=== PATIENT | female | born 1995 | race Caucasian/White ===

== ENCOUNTER 2017-07-12 08:26 | Emergency (ER) | payer BC ==
[2017-07-12 08:35] VITALS: RESP 16; TEMP 97.9
[2017-07-12] MEDS ORDERED: ONDANSETRON 4 MG/2 ML VIAL ONE (08:39)
[2017-07-12] MEDS ORDERED: ONDANSETRON 4 MG/2 ML VIAL IVP ONE ×2 (08:46→09:37)
--- NOTE | 2017-07-12 08:52 | EDPHY ---
H & P Stated Complaint: Pt reports anxiety and nausea/vomiting x 2 days. Time Seen by Provider: 07/12/17 08:38 HPI/ROS: CHIEF COMPLAINT: Her nausea vomiting HISTORY OF PRESENT ILLNESS: The patient is an 20-year-old female who comes to the emergency department complaining of nausea vomiting for 2 days. She states that she has vomited twice today. No fever. No abdominal pain. No diarrhea. No rash. She denies risk of . No urinary symptoms. No vaginal bleeding or discharge. She does have a history of depression, anxiety and attention deficit hyperactivity disorder. She also reports that about a year ago she got C diff from antibiotics prescribed for urinary tract infection and eventually was diagnosed with "gastroparesis" which has since resolved. She is not diabetic. REVIEW OF SYSTEMS: Constitutional: denies: chills, fever, recent illness, recent injury EENTM: denies: blurred vision, double vision, nose congestion Respiratory: denies: cough, shortness of breath Cardiac: denies: chest pain, irregular heart rate, lightheadedness, palpitations Gastrointestinal/Abdominal: See HPI Genitourinary: denies: dysuria, frequency, hematuria, pain Musculoskeletal: denies: joint pain, muscle pain Skin: denies: lesions, rash, jaundice, bruising Neurological: denies: headache, numbness, paresthesia, tingling, dizziness, weakness Hematologic/Lymphatic: denies: blood clots, easy bleeding, easy bruising Immunologic/allergic: denies: HIV/AIDS, transplant EXAM: GENERAL: Well-appearing, well-nourished and in no acute distress. HEAD: Atraumatic, normocephalic. EYES: Pupils equal round and reactive to light, extraocular movements intact, sclera anicteric, conjunctiva are normal. ENT: TMs normal, nares patent, oropharynx clear without exudates. Moist mucous membranes. NECK: Normal range of motion, supple without lymphadenopathy or JVD. LUNGS: Breath sounds clear to auscultation bilaterally and equal. No wheezes rales or rhonchi. HEART: Regular rate and rhythm without murmurs, rubs or gallops. ABDOMEN: Soft, nontender, normoactive bowel sounds. No guarding, no rebound. No masses appreciated. BACK: No CVA tenderness, no spinal tenderness, step-offs or deformities EXTREMITIES: Normal range of motion, no pitting or edema. No clubbing or cyanosis. NEUROLOGICAL: Cranial nerves II through XII grossly intact. Normal speech, normal gait. 5/5 strength, normal movement in all extremities, normal sensation PSYCH: Normal mood, normal affect. SKIN: Warm, dry, normal turgor, no visible rashes or lesions. Source: Patient Exam Limitations: No limitations - Personal History LMP (Females 10-55): Extended Cycle BCP/Inj Current Tetanus Diphtheria and Acellular Pertussis (TDAP): Yes Tetanus Vaccine Date: within 10 years - Medical/Surgical History Hx Asthma: No Hx Chronic Respiratory Disease: No Hx Diabetes: No Hx Cardiac Disease: No Hx Renal Disease: No Hx Cirrhosis: No Hx Alcoholism: No Hx HIV/AIDS: No Hx Splenectomy or Spleen Trauma: No Other PMH: Hypothyroidism, anxiety, gastroparesis, ADHD, depression, ear tubes - Family History Significant Family History: No pertinent family hx - Social History Smoking Status: Current every day smoker Alcohol Use: Sober Drug Use: None Constitutional: Initial Vital Signs Temperature (C) 36.6 C 07/12/17 08:31 Heart Rate 78 07/12/17 08:31 Respiratory Rate 16 07/12/17 08:31 Blood Pressure 117/72 07/12/17 08:31 O2 Sat (%) 95 07/12/17 08:31 O2 Delivery Mode Room Air Allergies/Adverse Reactions: amoxicillin Allergy (Verified 07/12/17 08:31) Pt reports "not feeling good" metoclopramide [From Reglan] Allergy (Verified 07/12/17 08:31) Pt reports "joints getting tight" Home Medications: Medication Instructions Recorded Clonazepam 07/12/17 FLUoxetine 07/12/17 Florinef 07/12/17 Lamotrigine 07/12/17 Levothyroxine 07/12/17 Methylphenidate HCl 07/12/17 Nexplanon 07/12/17 Medical Decision Making ED Course/Re-evaluation: 9:30 a.m. the patient is feeling much better. She would like to have a p. O. Challenge and tried to take home meds. She states that her biggest problem has been that she has not been able to take her home medications and she is starting to feel depressed and anxious. I will give her another dose of IV Zofran. She continues to refuse any other type of anti nausea medication because they all make her sedated or extremely anxious. She is declining further fluids or imaging. She is eager to go home. Her lab work is reassuring. Her abdominal exam remains benign. 10:30 a.m. the patient completed her p.o. Challenge. She continues to decline any alternative nausea medications. Differential Diagnosis: Partial list of the Differential diagnosis considered include but were not limited to; gastroenteritis, food poisoning, medication reaction, anxiety and although unlikely based on the history and physical exam, I also considered appendicitis, biliary disease, , urinary tract infection. I discussed these differential diagnoses and the plan with the patient as well as the usual and expected course. The patient understands that the diagnosis is provisional and that in medicine we are not always correct and that further workup is often warranted. Usual and customary warnings were given. All of the patient's questions were answered. The patient was instructed to return to the emergency department should the symptoms at all worsen or return, otherwise to followup with the physician as we discussed. - Data Points Laboratory Results: Laboratory Results 07/12/17 08:55 07/12/17 08:55 07/12/17 07/12/17 07/12/17 09:45 08:55 08:55 WBC RBC Hgb Hct MCV MCH MCHC RDW Plt Count MPV Neut % (Auto) Lymph % (Auto) [place] % (Auto) Eos % (Auto) Baso % (Auto) Nucleat RBC Rel Count Absolute Neuts (auto) Absolute Lymphs (auto) Absolute Monos (auto) Absolute Eos (auto) Absolute Basos (auto) Absolute Nucleated RBC Immature Gran % Immature Gran # Sodium 143 mEq/L mEq/L (135-145) Potassium 3.7 mEq/L mEq/L (3.5-5.2) Chloride 106 mEq/L mEq/L (97-110) Carbon Dioxide 22 mEq/l mEq/l (22-31) Anion Gap 15 mEq/L mEq/L (8-16) BUN 11 mg/dL mg/dL (7-23) Creatinine 0.6 mg/dL mg/dL (0.6-1.0) Estimated GFR > 60 Glucose 86 mg/dL mg/dL (70-100) Calcium 9.0 mg/dL mg/dL (8.5-10.4) Total Bilirubin 0.6 mg/dL mg/dL (0.1-1.4) Conjugated Bilirubin 0.2 mg/dL mg/dL (0.0-0.5) Unconjugated Bilirubin 0.4 mg/dL mg/dL (0.0-1.1) AST 21 IU/L IU/L (14-46) ALT 24 IU/L IU/L (9-52) Alkaline Phosphatase 64 IU/L IU/L (38-126) Total Protein 6.9 g/dL g/dL (6.3-8.2) Albumin 3.9 g/dL g/dL (3.5-5.0) Lipase 141 IU/L IU/L (23-300) Beta HCG, Qual NEGATIVE Urine Color YELLOW Urine Appearance HAZY Urine pH 7.0 (5.0-7.5) Ur Specific [place] 1.015 (1.002-1.030) Urine Protein NEGATIVE (NEGATIVE) Urine Ketones TRACE H (NEGATIVE) Urine Blood TRACE H (NEGATIVE) Urine Nitrate NEGATIVE (NEGATIVE) Urine Bilirubin NEGATIVE (NEGATIVE) Urine Urobilinogen 1.0 EU EU (0.2-1.0) Ur Leukocyte Esterase NEGATIVE (NEGATIVE) Urine RBC 5-10 /hpf H /hpf (0-3) Urine WBC 3-5 /hpf H /hpf (0-3) Ur Epithelial Cells 2+ /lpf H /lpf (NONE-1+) Urine Bacteria 2+ /hpf H /hpf (NONE SEEN) Urine Mucus 2+ /lpf H /lpf (NONE-1+) Urine Yeast OCCASIONAL /hpf H /hpf (NONE SEEN) Urine Glucose NEGATIVE (NEGATIVE) 07/12/17 08:55 WBC 7.26 10^3/uL 10^3/uL (3.80-9.50) RBC 4.75 10^6/uL 10^6/uL (4.18-5.33) Hgb 12.9 g/dL g/dL (12.6-16.3) Hct 39.1 % % (38.0-47.0) MCV 82.3 fL fL (81.5-99.8) MCH 27.2 pg L pg (27.9-34.1) MCHC 33.0 g/dL g/dL (32.4-36.7) RDW 12.2 % % (11.5-15.2) Plt Count 230 10^3/uL 10^3/uL (150-400) MPV 10.4 fL fL (8.7-11.7) Neut % (Auto) 70.1 % % (39.3-74.2) Lymph % (Auto) 18.2 % % (15.0-45.0) [place] % (Auto) 9.1 % % (4.5-13.0) Eos % (Auto) 1.9 % % (0.6-7.6) Baso % (Auto) 0.4 % % (0.3-1.7) Nucleat RBC Rel Count 0.0 % % (0.0-0.2) Absolute Neuts (auto) 5.09 10^3/uL 10^3/uL (1.70-6.50) Absolute Lymphs (auto) 1.32 10^3/uL 10^3/uL (1.00-3.00) Absolute Monos (auto) 0.66 10^3/uL 10^3/uL (0.30-0.80) Absolute Eos (auto) 0.14 10^3/uL 10^3/uL (0.03-0.40) Absolute Basos (auto) 0.03 10^3/uL 10^3/uL (0.02-0.10) Absolute Nucleated RBC 0.00 10^3/uL 10^3/uL (0-0.01) Immature Gran % 0.3 % % (0.0-1.1) Immature Gran # 0.02 10^3/uL 10^3/uL (0.00-0.10) Sodium Potassium Chloride Carbon Dioxide Anion Gap BUN Creatinine Estimated GFR Glucose Calcium Total Bilirubin Conjugated Bilirubin Unconjugated Bilirubin AST ALT Alkaline Phosphatase Total Protein Albumin Lipase Beta HCG, Qual Urine Color Urine Appearance Urine pH Ur Specific [place] Urine Protein Urine Ketones Urine Blood Urine Nitrate Urine Bilirubin Urine Urobilinogen Ur Leukocyte Esterase Urine RBC Urine WBC Ur Epithelial Cells Urine Bacteria Urine Mucus Urine Yeast Urine Glucose Medications Given: Discontinued Medications Sodium Chloride (Ns) 1,000 mls @ 0 mls/hr IV CONT LAURI PRN Reason: TKO Stop: 01/08/18 08:59 Last Admin: 07/12/17 08:52 Dose: 1,000 mls Ondansetron HCl (Zofran) 4 mg IVP EDNOW ONE Stop: 07/12/17 08:47 Last Admin: 07/12/17 08:52 Dose: 4 mg Ondansetron HCl (Zofran) 4 mg IVP EDNOW ONE Stop: 07/12/17 09:38 Last Admin: 07/12/17 09:43 Dose: 4 mg Departure - Departure Disposition: Home, Routine, Self-Care Clinical Impression: Acute gastroenteritis Condition: Fair Instructions: Gastroenteritis (ED) Referrals: GITA CHAND MD [Primary Care Provider] - 2-3 days, if not improved
[2017-07-12 08:58] LABS: PLATELET COUNT 230 10^3/uL (150-400)
[2017-07-12] MEDS ORDERED: NS 1,000 ML IV SCH (09:00)
[2017-07-12 10:41] VITALS: BP 118/78; PULSE 69; O2SAT 96
== END 2017-07-12 10:41 | disposition home or self-care (01) ==
LOC: CED 08:26
DX: K52.9 Noninfective gastroenteritis and colitis, unspecified (principal); F17.200 Nicotine dependence, unspecified, uncomplicated
CPT/HCPCS: 80048-PO; 80076-PO; 81003-PO; 81015-PO; 83690-PO; 84703-PO; 85025-PO; 96374; J2405